=== PATIENT | male | born 1960 | race Hispanic/Latino ===

== ENCOUNTER 2016-08-02 19:49 | Emergency (ER) | payer OTHER ==
[2016-08-02 20:07] VITALS: BP 127/80
--- NOTE | 2016-08-02 21:37 | ED GI/GU/ABDOMINAL COMPLAINT ---
History of Present Illness General Chief Complaint: Male Genitourinary Problems Stated Complaint: "I CANT PEE" Source: patient Exam Limitations: no limitations Vital Signs & Intake/Output Vital Signs & Intake/Output Vital Signs Date Time Temp Pulse Resp B/P Pulse O2 O2 Flow FiO2 Ox Delivery Rate 08/02 2201 100 Room Air 08/02 2006 98.2 90 16 127/80 98 Room Air Room Air Allergies Coded Allergies: NO KNOWN ALLERGIES (02/20/14) Triage Note: PT TO TRIAge WITH THE INABILITY TO URINATE FOR 2 HOURS. PT STATES HE HAS HAD PAIN WITH URINATION FOR 2 DAYS BUT WAS STARTED ON AMOXICILLIN AND TAMSULOSIN TODAY. DENIES FEVERS. DENIES BLOOD IN URINE Triage Nurses Notes Reviewed? yes Onset: Abrupt Duration: hour(s): (2), constant Timing: recent history Prior Abdominal Problems: none HPI: 55-year-old male with a history of enlarged prostate comes into emergency room with inability to urinate for the past 2 hours and lower abdominal pressure. Denies any fever chills vomiting. Denies any prior history of inability to urinate. Denies any other associated symptoms. (THOMPSON RIOS) Past History Travel History Traveled to [place] past 21 day No Medical History Any Pertinent Medical History? see below for history Neurological: NONE EENT: NONE Cardiovascular: NONE Respiratory: NONE Gastrointestinal: NONE Hepatic: NONE Renal: NONE Musculoskeletal: NONE Psychiatric: NONE Endocrine: NONE Blood Disorders: NONE Cancer(s): NONE BURR FILER/Reproductive: NONE Surgical History Surgical History: non-contributory Psychosocial History What is your primary language Bermudian Tobacco Use: Never used ETOH Use: denies use Illicit Drug Use: denies illicit drug use Family History Hx Contributory? No (THOMPSON RIOS) Review of Systems Review of Systems Constitutional: Reports: no symptoms. EENTM: Reports: no symptoms. Respiratory: Reports: no symptoms. Cardiovascular: Reports: no symptoms. GI: Reports: no symptoms. Genitourinary: Reports: see HPI. Musculoskeletal: Reports: no symptoms. Skin: Reports: no symptoms. Neurological/Psychological: Reports: no symptoms. Hematologic/Endocrine: Reports: no symptoms. Immunologic/Allergic: Reports: no symptoms. All Other Systems: Reviewed and Negative (THOMPSON RIOS) Physical Exam Physical Exam General Appearance: well developed/nourished, no apparent distress, alert Head: atraumatic, normal appearance Eyes: Bilateral: normal appearance, EOMI. Ears, Nose, Throat, Mouth: hearing grossly normal, moist mucous membrane Neck: normal inspection Respiratory: normal breath sounds, no respiratory distress Cardiovascular: regular rate/rhythm Gastrointestinal: soft, tenderness (SUPRAPUBIC) Male Genitals: normal genitalia Back: normal inspection, normal range of motion Extremities: normal range of motion Neurologic/Psych: awake, alert, oriented x 3, normal gait, normal mood/affect Skin: intact, normal color Core Measures ACS in differential dx? No Severe Sepsis Present: No Septic Shock Present: No (THOMPSON RIOS) Progress Differential Diagnosis: appendicitis, biliary colic, orchitis, prostatitis, pyelonephritis, testicular torsion, ureterolithiasis, urinary retention, urethritis, UTI/pyelo, bph Plan of Care: Orders Procedure Date/time Status Flores, Insertion/Removal/Asses 08/02 2036 Active CULTURE,URINE 08/02 2036 Active URINALYSIS 08/02 2036 Complete Laboratory Tests 08/02/16 2100: Urine Color YEL, Urine Clarity CLEAR, Urine pH 6.0, Ur Specific [place] 1.010, Urine Protein NEG, Urine Ketones NEG, Urine Nitrite NEG, Urine Bilirubin NEG, Urine Urobilinogen 4.0 H, Ur Leukocyte Esterase TRACE H, Ur Microscopic SEDIMENT EXAMINED, Urine RBC 1-3, Urine WBC 1-3 H, Urine Hemoglobin SMALL H, Urine Glucose NEG Microbiology 08/02 2099 URINE ROUT: Urine Culture - RECD Initial ED EKG: none Comments: 08/02/2016 9:58:08 PM Patient's symptoms completely resolved after Flores catheter placed. Patient sent home with Flores catheter in place with instructions to follow up with urology. Return if any other concerns worsening symptoms. (THOMPSON RIOS) Departure Departure Disposition: HOME OR SELF CARE Condition: Stable Clinical Impression Primary Impression: Urinary retention Referrals: JULIETTE SIMENTAL,MORRIS PELLETIER APRN (PCP/Family) Additional Instructions: Keep catheter in place until he follow-up with urologist. Call tomorrow for follow-up appointment. Return if any other concerns worsening symptoms. Please go over all results of today's visit with your primary care doctor. Contact your primary care doctor to let them know you were here in the emergency room. There may be nonspecific findings which may not be related to your visit today here in the emergency room but may require further evaluation and chronic monitoring by your primary care doctor. If you had a laceration today the chance of foreign body always remains. You should follow-up with your primary care doctor for recheck in 3-5 days for a wound check. If you had an x-ray done there is a chance that a fracture could have been missed on initial read and you should follow-up with your primary care doctor for repeat x-rays if symptoms persist. If your blood pressure was elevated here in the emergency room please have rechecked by her primary care doctor within the next 48 hours by your primary care doctor. If you were prescribed a narcotic here in the emergency room or any type of controlled substances you're not allowed to drive while taking this medication or operate any type of heavy machinery. Narcotics can make you feel lightheaded dizziness nausea and can cause constipation. You may need to bean picker a stool softener. Thank you for choosing [facility] emergency room. Please return to the emergency room immediately if you have any other concerns worsening of symptoms. Departure Forms: Customer Survey General Discharge Information (THOMPSON RIOS) PA/TRANSMISSION REPAIRER Co-Sign Statement Statement: ED Attending supervision documentation- [] I saw and evaluated the patient. I have also reviewed all the pertinent lab results and diagnostic results. I agree with the findings and the plan of care as documented in the PA's/TRANSMISSION REPAIRER's documentation. [X] I have reviewed the ED Record and agree with the PA's/TRANSMISSION REPAIRER's documentation. [] Additions or exceptions (if any) to the PAs/TRANSMISSION REPAIRER's note and plan are summarized below: [] (TRUE SIMENTAL,RAMY Dumont)
[2016-08-18] MEDS ORDERED: TAMSULOSIN HCL0.4 M1 PO (18:07)
[2016-08-18] MEDS ORDERED: DITROPAN XL10 M1 PO (18:08)
== END 2016-08-02 22:03 ==
LOC: ERH 19:49
DX: R33.9 Retention of urine, unspecified (principal)
CPT/HCPCS: 81001; 87086

== ENCOUNTER 2016-08-03 22:33 | Emergency (ER) | payer OTHER ==
[~2016-08-03] VITALS: Ht 167.6 cm; Wt 73.9 kg
--- NOTE | 2016-08-03 23:26 | ED GI/GU/ABDOMINAL COMPLAINT ---
History of Present Illness General Chief Complaint: Male Genitourinary Problems Stated Complaint: "NOT ABLE TO PEE PEE HERE YESTERDAY FOR THE SAME" Source: patient Exam Limitations: no limitations Vital Signs & Intake/Output Vital Signs & Intake/Output Vital Signs Date Time Temp Pulse Resp B/P Pulse O2 O2 Flow FiO2 Ox Delivery Rate 08/04 0013 98.5 99 16 140/80 99 Room Air 08/03 2242 98.4 118 16 155/85 98 Room Air Room Air ED Intake and Output 08/04 0000 08/03 1200 Intake Total 0 Output Total Balance 0 Intake, Oral 0 Patient 163 lb Weight Allergies Coded Allergies: NO KNOWN ALLERGIES (08/03/16) Triage Note: PT TO TRIAGE WITH INABILITY TO VOID FOR OVER 2 HOURTS. PT HAD SIMILAR SITUATION LAST NIGHT AND HAD SALMERON PLACED. PT SAW UROLOGY TODAY WHO REMOVED SALMERON. PT WAS ABLE TO URINATE A LITTLE S/P BUT NOW ONLY HAS A COUPLE DROPS. Triage Nurses Notes Reviewed? yes Onset: Abrupt Duration: hour(s): Timing: single episode today Quality/Severity: cramping Location: suprapubic Radiation: no radiation Activities at Onset: none Prior Abdominal Problems: similar symptoms Modifying Factors: Improves With: other (better with Salmeron). Associated Symptoms: urinary retention HPI: 55-year-old gentleman presents with urinary retention. He has a history of urinary retention, was seen yesterday in the emergency department. He had a Salmeron placed which was draining well. He saw his urologist earlier today. The Salmeron was removed. He states that afterwards he had difficulty urinating. He last urinated several hours ago. He feels pressure, but is unable to void. He is otherwise well has no fever chills nausea vomiting diarrhea. Past History Travel History Traveled to [place] past 21 day No Medical History Any Pertinent Medical History? 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 No Review of Systems Review of Systems Constitutional: Reports: no symptoms. EENTM: Reports: no symptoms. Respiratory: Reports: no symptoms. Cardiovascular: Reports: no symptoms. GI: Reports: no symptoms. Genitourinary: Reports: no symptoms. Musculoskeletal: Reports: no symptoms. Skin: Reports: no symptoms. Neurological/Psychological: Reports: no symptoms. Hematologic/Endocrine: Reports: no symptoms. Immunologic/Allergic: Reports: no symptoms. All Other Systems: Reviewed and Negative Physical Exam Physical Exam General Appearance: well developed/nourished, mild distress Head: atraumatic, normal appearance Eyes: Bilateral: normal appearance. Ears, Nose, Throat, Mouth: hearing grossly normal, moist mucous membrane Neck: normal inspection, supple, full range of motion Respiratory: normal breath sounds, chest non-tender, no respiratory distress, quiet respiration, lungs clear Cardiovascular: regular rate/rhythm Gastrointestinal: normal bowel sounds, soft, non-tender, no organomegaly Back: normal inspection Extremities: normal range of motion Neurologic/Psych: no motor/sensory deficits, awake, alert, oriented x 3 Core Measures ACS in differential dx? No Severe Sepsis Present: No Septic Shock Present: No Progress Differential Diagnosis: urinary retention Plan of Care: Orders Procedure Date/time Status URINALYSIS 08/03 2325 Complete Salmeron, Insertion/Removal/Asses 08/03 2244 Active Laboratory Tests 08/03/16 2345: Urine Color YEL, Urine Clarity CLEAR, Urine pH 6.0, Ur Specific [place] 1.020, Urine Protein 100 H, Urine Ketones NEG, Urine Nitrite NEG, Urine Bilirubin NEG, Urine Urobilinogen 1.0, Ur Leukocyte Esterase NEG, Ur Microscopic SEDIMENT EXAMINED, Urine RBC 25-50 H, Urine WBC RARE, Ur Epithelial Cells RARE, Urine Mucus RARE, Urine Hemoglobin LARGE H, Urine Glucose NEG Microbiology 08/03 2244 URINE ROUT: Urine Culture - CAN Cancelled: Cancelled via OE: WRONG PT Initial ED EKG: none Departure Departure Disposition: HOME OR SELF CARE Condition: Stable Clinical Impression Primary Impression: Urinary retention Referrals: MORRIS MAC APRN (PCP/Family) Departure Forms: Customer Survey General Discharge Information Comments Salmeron was placed immediately upon arrival to the emergency department. He drained nearly 1000 mL of urine. He felt immediate relief. There is no sign of infection in his urinalysis. He will follow-up with the urologist tomorrow. He will continue his baseline BPH medications.
[2016-08-04 00:13] VITALS: BP 140/80
[2016-08-05] MEDS ORDERED: GEMFIBROZIL600 M1 PO (17:33)
[2016-08-05] MEDS ORDERED: VITAMIN D2000 UNIT PO (17:35)
[2016-08-18] MEDS ORDERED: TAMSULOSIN HCL0.4 M1 PO (18:07)
[2016-08-18] MEDS ORDERED: DITROPAN XL10 M1 PO (18:08)
== END 2016-08-04 00:14 ==
LOC: ERH 22:33
DX: R33.9 Retention of urine, unspecified (principal)
CPT/HCPCS: 81001; 87086

== ENCOUNTER 2016-08-05 16:00 | Emergency (ER) | payer OTHER ==
[~2016-08-05] VITALS: Ht 167.6 cm; Wt 73.9 kg
[2016-08-05] MEDS ORDERED: GEMFIBROZIL600 M1 PO (17:33)
[2016-08-05] MEDS ORDERED: VITAMIN D2000 UNIT PO (17:35)
--- NOTE | 2016-08-05 17:35 | ED GI/GU/ABDOMINAL COMPLAINT ---
History of Present Illness General Chief Complaint: Male Genitourinary Problems Stated Complaint: PAIN UPON URINATION Source: patient, family, old records Exam Limitations: language barrier Vital Signs & Intake/Output Vital Signs & Intake/Output Vital Signs Date Time Temp Pulse Resp B/P Pulse O2 O2 Flow FiO2 Ox Delivery Rate 08/05 1837 98.6 108 18 130/81 99 Room Air 08/05 1605 98.1 99 18 135/84 99 Room Air ED Intake and Output 08/06 0000 08/05 1200 Intake Total Output Total 600 Balance -600 Output, Urine 600 Patient 163 lb Weight Allergies Coded Allergies: NO KNOWN ALLERGIES (08/03/16) Reconcile Medications Cholecalciferol (Vitamin D3) (Vitamin D) 2,000 UNIT CAPSULE 1 CAP PO DAILY SUPPLEMENT (Reported) Gemfibrozil 600 MG TABLET 1 TAB PO DAILY CHOLESTEROL (Reported) Triage Note: 55 Y/O MALE C/O URINARY RETENTION SINCE MONDAY; STATES HE HAS A SALMERON IN PLACE "WITH A LITTLE URINE". STATES "MY STOMACH IS FULL". APPEARS UNCOMFORTABLE IN TRIAGE, Triage Nurses Notes Reviewed? yes HPI: Patient is a 55-year-old male presents complaining of suprapubic pain and his Salmeron catheter not draining properly. Patient had a Salmeron catheter placed on August 02, followed up with Dr. Menezes on August 03, had the Salmeron catheter removed, was not able to urinate after that and had the Salmeron catheter again placed. Patient reports that his catheter was drained early this afternoon, has had minimal urine output since then and developed suprapubic pain. Pain was severe home. The charge nurse attempted to flush the patient's Salmeron catheter without success and a new Salmeron catheter was attempted to be placed without success. Patient reports he was able to urinate a very small amount after that which had hematuria and he feels mildly improved. Continues with moderate suprapubic pain. Patient also reports urgency when he has a bowel movement. Patient has an appointment with his urologist on August 16. Patient has been taking a medication from his urologist, is unsure of the name of the medication as it was samples. Denies fevers, chills, nausea, vomiting, diarrhea. (RAJINDER RICHARDS,ANNI) Past History Travel History Traveled to [place] past 21 day No Medical History Any Pertinent Medical History? 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 No (ANNI ORLANDO) Review of Systems Review of Systems Constitutional: Denies: chills, fever. EENTM: Reports: no symptoms. Respiratory: Reports: no symptoms. Cardiovascular: Denies: chest pain. GI: Reports: abdominal pain. Denies: diarrhea, nausea, vomiting. Genitourinary: Reports: see HPI. Musculoskeletal: Denies: back pain. Skin: Reports: no symptoms. Neurological/Psychological: Reports: no symptoms. Hematologic/Endocrine: Reports: no symptoms. Immunologic/Allergic: Reports: no symptoms. (ANNI ORLANDO) Physical Exam Physical Exam General Appearance: well developed/nourished, alert Head: atraumatic, normal appearance Eyes: Bilateral: normal appearance, PERRL, EOMI. Ears, Nose, Throat, Mouth: hearing grossly normal, moist mucous membrane Neck: normal inspection, supple, full range of motion Respiratory: normal breath sounds, chest non-tender, no respiratory distress, lungs clear Cardiovascular: regular rate/rhythm Gastrointestinal: normal bowel sounds, soft, mild suprapubic tenderness Rectal: normal inspection, normal rectal tone, enlarged prostate, does not feel "boggy". Back: normal inspection, normal range of motion Extremities: normal range of motion Neurologic/Psych: no motor/sensory deficits, awake, alert, oriented x 3, normal gait, normal mood/affect Skin: intact, normal color, warm/dry Core Measures ACS in differential dx? No Severe Sepsis Present: No Septic Shock Present: No (ANNI ORLANDO) Progress Differential Diagnosis: prostatitis, urinary retention, UTI/pyelo, rectal abscess Plan of Care: Orders Procedure Date/time Status Salmeron, Insertion/Removal/Asses 08/05 175 Active CULTURE,URINE 08/05 175 Active URINALYSIS 08/05 175 Complete COMPREHENSIVE METABOLIC PANEL 08/05 175 Complete CBC WITHOUT DIFFERENTIAL 08/05 1749 Complete Laboratory Tests 08/05/16 1823: Urinalysis LIGHT H, Urine Color BLUE H, Urine Clarity CLEAR, Urine pH 6.0, Ur Specific [place] 1.015, Urine Protein 30 H, Urine Ketones NEG, Urine Nitrite NEG, Urine Bilirubin NEG, Urine Urobilinogen 0.2, Ur Leukocyte Esterase SMALL H , Ur Microscopic SEDIMENT EXAMINED, Urine RBC >75 H, Urine WBC 3-5 H, Ur Epithelial Cells TRANS H, Urine Hemoglobin LARGE H, Urine Glucose NEG 08/05/16 1800: Anion Gap 11, Estimated GFR > 60, BUN/Creatinine Ratio 18.0, Glucose 116 H, Calcium 9.4, Total Bilirubin 0.4, AST 33, ALT 69, Alkaline Phosphatase 99, Total Protein 7.0, Albumin 3.8, Globulin 3.2, Albumin/Globulin Ratio 1.2, CBC w Diff NO MAN DIFF REQ, RBC 5.21, MCV 84.1, MCH 28.2, RDW 13.3, MPV 8.4, Gran % 61.9, Lymphocytes % 20.7, Monocytes % 15.4 H, Eosinophils % 1.8, Basophils % 0.2, Absolute Granulocytes 3.8, Absolute Lymphocytes 1.3, Absolute Monocytes 0.9 H, Absolute Eosinophils 0.1, Absolute Basophils 0, PUBS MCHC 33.5 Microbiology 08/05 1823 URINE ROUT: Urine Culture - RES Discussed with and seen by Dr. Garcia. 08/05/2016 7:38:24 PM: Patient reports significant improvement in his symptoms after Salmeron placement. Patient reports that Salmeron is draining without difficulty and he is currently symptom-free. Discussed results of labs with the patient and his family member. Patient appears stable for discharge, instructed them to contact his urologist on Monday. (ANNI ORLANDO) Initial ED EKG: none (ANNI ORLANDO) Departure Departure Time of Disposition: 1935 Disposition: HOME OR SELF CARE Condition: Stable Clinical Impression Primary Impression: Salmeron catheter problem Qualifiers: Encounter type: initial encounter Qualified Code: T83.9XXA - Unspecified complication of genitourinary prosthetic device, implant and graft, initial encounter Referrals: JULIETTE SIMENTAL,MORRIS PELLETIER APRN (PCP/Family) Additional Instructions: Follow up with Dr. Menezes. Call Monday to try to get an earlier appointment than your appointment on 08/16/16. Drink plenty of fluids. Return to the ER if fevers, increasing pain, catheter is not draining or worsening of symptoms. Departure Forms: Customer Survey General Discharge Information (RAJINDER RICHARDS,ANNI) PA/TELECASTING ENGINEER Co-Sign Statement Statement: ED Attending supervision documentation- [] I saw and evaluated the patient. I have also reviewed all the pertinent lab results and diagnostic results. I agree with the findings and the plan of care as documented in the PA's/TELECASTING ENGINEER's documentation. [x] I have reviewed the ED Record and agree with the PA's/TELECASTING ENGINEER's documentation. [] Additions or exceptions (if any) to the PAs/TELECASTING ENGINEER's note and plan are summarized below: [] (TAWANA GARCIA DO)
[2016-08-05 18:23] LABS: ABSOLUTE BASOPHIL COUNT 0 /CUMM (0.0-0.2); ABSOLUTE EOSINOPHIL COUNT 0.1 /CUMM (0.0-0.7); ABSOLUTE GRANULOCYTE CT 3.8 /CUMM (1.4-6.5); ABSOLUTE LYMPH COUNT 1.3 /CUMM (1.2-3.4); ABSOLUTE MONOCYTE COUNT 0.9 /CUMM (0.10-0.60); BASOPHIL % 0.2 % (0.0-2.0); EOSINOPHIL % 1.8 % (0-5); GRANULOCYTE % 61.9 % (42.2-75.2); HEMATOCRIT 43.8 % (42-52); MEAN CORPUSCULAR HGB 28.2 PG (27.0-31.0); MEAN CORPUSCULAR HGB CONC 33.5 G/DL (33.0-37.0); MEAN CORPUSCULAR VOLUME 84.1 FL (80.0-94.0); MEAN PLATELET VOLUME 8.4 FL (7.4-10.4); PLATELET COUNT 249 /CUMM (130-400); RBC DISTRIBUTION WIDTH 13.3 % (11.5-14.5); RED BLOOD CELL CT 5.21 /CUMM (4.70-6.10); WHITE BLOOD CELL COUNT 6.1 /CUMM (4.8-10.8)
[2016-08-05 18:37] VITALS: BP 130/81
[2016-08-18] MEDS ORDERED: TAMSULOSIN HCL0.4 M1 PO (18:07)
[2016-08-18] MEDS ORDERED: DITROPAN XL10 M1 PO (18:08)
== END 2016-08-05 19:57 ==
LOC: ERH 16:00
PROVIDERS: Physician Assistant
DX: T83.9XXA Unspecified complication of genitourinary prosthetic device, implant and graft, initial encounter (principal)
CPT/HCPCS: 81001; 87086

== ENCOUNTER → 2016-08-19 | Day surgery (SDC) | payer OTHER ==
[~2016-08-19] MED LIST: CEFUROXIME500 MG PO; DITROPAN XL10 M1 PO; GEMFIBROZIL600 M1 PO; TAMSULOSIN HCL0.4 M1 PO; VITAMIN D2000 UNIT PO
--- NOTE | 2016-08-20 14:04 | Operative Report ---
Operative/Inv Procedure Report Surgery Date: 08/19/16 Name of Procedure: Bipolar TURP Pre-Operative Diagnosis: trilobar benign prostatic hypertrophy Post-Operative Diagnosis: same Estimated Blood Loss: 50ml to 100ml Surgeon/Japanese Interpreter: SARAI SEGOVIA MD Anesthesia: laryngeal mask airway Drains: 20fr smith [address] Specimens: prostate chips Complications: none Condition: stable Operative Indication: urinary retention x multiple with failed medical therapy Operative/Procedure Note Note: Milton White was identified in the operating room and consented for a TURP for his BPH issues. He was given the risks, benefits and alternatives of the surgery and all questions were answered. He was taken to the operating room and placed on the operating room table in the supine position. Once time out was performed, IV antibiotics were infused and LMA was performed. He was placed into the dorsal lithotomy position and prepped and draped in the standard sterile fashion. A cystoscopy was performed and the bladder was globally inspected. The left ureteral orifice was able to be identified but not the right side. He had a very large trilobar obstruction with a long prostatic length. The laser fiber was placed and used for a short period before it was too bloody to continue using. The resectoscope was placed with the bipolar loop and the prostate was resected in a systematic fashion starting from the bladder neck/median lobe to the left lateral lobe then the right side. Care was taken to ensure the ureters were not in the field of surgery and the verumontanum was not surpassed while resecting the prostate. Point coagulation was carried out as needed. The [employer] evacuator was used throughout the remove the prostatic chips periodically. Once the gland was sufficiently resected with a nice open channel, the bladder was cleared of the remaining prostatic chips. There was no active bleeders. A 20Fr [address] coude catheter was placed with 20cc of water in the balloon. The continuous bladder irrigation was started and the smith bag attached. The patient tolerated the procedure well. Findings: trilobar prostatic lobes with long prostatic length.
== END ==
LOC: STS 01:21
DX: N40.1 Benign prostatic hyperplasia with lower urinary tract symptoms (principal); R33.9 Retention of urine, unspecified; N13.8 Other obstructive and reflux uropathy; E78.00 Pure hypercholesterolemia, unspecified; F17.200 Nicotine dependence, unspecified, uncomplicated
CPT/HCPCS: 88305; J0131; J0690; J1885; J2250

== ENCOUNTER 2016-09-05 22:50 | Emergency (ER) | payer OTHER ==
[~2016-09-05] VITALS: Ht 167.6 cm; Wt 76.2 kg
[~2016-09-05 22:50] MED LIST changes: -CEFUROXIME500 MG PO
--- NOTE | 2016-09-05 23:24 | ED GI/GU/ABDOMINAL COMPLAINT ---
History of Present Illness General Chief Complaint: Male Genitourinary Problems Stated Complaint: "UNABLE TO URINATE, NEED CATH NOW" PER PT Source: patient, old records Exam Limitations: no limitations Vital Signs & Intake/Output Vital Signs & Intake/Output Vital Signs Date Time Temp Pulse Resp B/P Pulse O2 O2 Flow FiO2 Ox Delivery Rate 09/06 0124 98.6 88 18 142/82 98 Room Air 09/05 2300 98.7 108 20 168/97 98 Room Air ED Intake and Output 09/06 0000 09/05 1200 Intake Total Output Total Balance Patient 168 lb Weight Allergies Coded Allergies: NO KNOWN ALLERGIES (08/03/16) Reconcile Medications Cholecalciferol (Vitamin D3) (Vitamin D) 2,000 UNIT CAPSULE 1 CAP PO DAILY SUPPLEMENT (Reported) Gemfibrozil 600 MG TABLET 1 TAB PO DAILY CHOLESTEROL (Reported) Oxybutynin Chloride (Ditropan XL) 10 MG TAB.ER.24 1 TAB PO DAILY BLADDER ( Reported) Tamsulosin HCl 0.4 MG CAP.ER.24H 1 CAP PO DAILY (Reported) Triage Note: RECEIVED 55 YO MALE C/O UNABLE TO VOID. LAST VOIDED BLOODY URINE ONE HOUR AGO. PT HAD PROSTATE SURGURY 20 DAYS AGO. TURP?. UROLOGIST DR MORAN Triage Nurses Notes Reviewed? yes HPI: Patient had a TURP [address] Surekha Menezes. Today he started having blood in his urine and has been unable to void for the past 3 hours. Patient is now having pressure sensation in his suprapubic area feeling like he has to urinate but is unable to. The pain is worsening and is currently an 8 out of 10. There is no radiation. There are no aggravating or mitigating factors. There is no nausea or vomiting. There are no fevers or chills. Past History Travel History Traveled to [place] past 21 day No Medical History Any Pertinent Medical History? 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 No Review of Systems Review of Systems Constitutional: Reports: no symptoms. EENTM: Reports: no symptoms. Respiratory: Reports: no symptoms. Cardiovascular: Reports: no symptoms. GI: Reports: no symptoms. Genitourinary: Reports: see HPI, hematuria, hesitation. Musculoskeletal: Reports: no symptoms. Skin: Reports: no symptoms. Neurological/Psychological: Reports: no symptoms. Hematologic/Endocrine: Reports: no symptoms. Immunologic/Allergic: Reports: no symptoms. All Other Systems: Reviewed and Negative Physical Exam Physical Exam General Appearance: well developed/nourished, alert, awake, anxious Head: atraumatic Eyes: Bilateral: PERRL, EOMI. Ears, Nose, Throat, Mouth: hearing grossly normal, moist mucous membrane Neck: normal inspection Respiratory: normal breath sounds, chest non-tender, no respiratory distress, lungs clear Cardiovascular: regular rate/rhythm, normal peripheral pulses Gastrointestinal: normal bowel sounds, soft, non-tender, no organomegaly Back: normal inspection Extremities: normal range of motion Neurologic/Psych: no motor/sensory deficits, awake, alert, oriented x 3, normal gait, normal mood/affect Skin: intact, normal color, warm/dry Core Measures ACS in differential dx? No Severe Sepsis Present: No Septic Shock Present: No Progress Differential Diagnosis: urinary retention, UTI/pyelo Plan of Care: Orders Procedure Date/time Status Flores, Insertion/Removal/Asses 09/05 2322 Active CULTURE,URINE 09/05 2322 Active URINALYSIS 09/05 2322 Complete Laboratory Tests 09/06/16 0010: Urine Color BLDY H, Urine Clarity TURBD H, Urine pH 6.5, Ur Specific [place] 1.025, Urine Protein >=300 H, Urine Ketones NEG, Urine Nitrite NEG, Urine Bilirubin NEG, Urine Urobilinogen 0.2, Ur Leukocyte Esterase NEG, Ur Microscopic SEDIMENT EXAMINED, Urine RBC PACKD H, Urine Hemoglobin LARGE H, Urine Glucose NEG Microbiology 09/06 001 URINE ROUT: Urine Culture - RECD Initial ED EKG: none Departure Departure Disposition: HOME OR SELF CARE Condition: Stable Clinical Impression Primary Impression: Urinary retention Referrals: JULIETTE SIMENTAL,MORRIS PELLETIER APRN (PCP/Family) Additional Instructions: KEEP CATHETER IN FOLLOW UP WITH DR. MENEZES RETURN FOR ANY CONCERNS Departure Forms: Customer Survey General Discharge Information
[2016-09-06 01:24] VITALS: BP 142/82
== END 2016-09-06 01:27 ==
LOC: ERH 22:50
DX: R33.9 Retention of urine, unspecified (principal); R31.9 Hematuria, unspecified
CPT/HCPCS: 81001; 87086

== ENCOUNTER 2016-09-09 23:49 | Emergency (ER) | payer OTHER ==
[~2016-09-09] VITALS: Ht 162.6 cm; Wt 76.2 kg
--- NOTE | 2016-09-09 23:56 | ED GI/GU/ABDOMINAL COMPLAINT ---
History of Present Illness General Chief Complaint: Male Genitourinary Problems Stated Complaint: DIFFICULT URINATION Source: patient Exam Limitations: no limitations Vital Signs & Intake/Output Vital Signs & Intake/Output Vital Signs Date Time Temp Pulse Resp B/P Pulse O2 O2 Flow FiO2 Ox Delivery Rate 09/10 0003 98.1 89 16 115/84 98 Room Air ED Intake and Output 09/10 0000 09/09 1200 Intake Total Output Total Balance Patient 168 lb Weight Allergies Coded Allergies: NO KNOWN ALLERGIES (08/03/16) Reconcile Medications Cefuroxime Axetil (Cefuroxime) 500 MG TABLET 1 TAB PO BID uti/hematuria Cholecalciferol (Vitamin D3) (Vitamin D) 2,000 UNIT CAPSULE 1 CAP PO DAILY SUPPLEMENT (Reported) Gemfibrozil 600 MG TABLET 1 TAB PO DAILY CHOLESTEROL (Reported) Oxybutynin Chloride (Ditropan XL) 10 MG TAB.ER.24 1 TAB PO DAILY BLADDER ( Reported) Tamsulosin HCl 0.4 MG CAP.ER.24H 1 CAP PO DAILY (Reported) Triage Nurses Notes Reviewed? yes Onset: Gradual Duration: hour(s): Timing: recent history Quality/Severity: cramping Location: suprapubic Radiation: no radiation Activities at Onset: pt with indwelling smith... was flushed by urologist earlier today Prior Abdominal Problems: pt is s/p TURP in mid-august Modifying Factors: Worsens With: other (blood clots). Associated Symptoms: hematuria HPI: 55-year-old gentleman presents with hematuria and blood clots from his indwelling Smith. He states that in mid August he had a TURP. He has had a Smith catheter since then. He notes that earlier today his urologist flushed out his bladder. Several hours ago he developed hematuria with clots. He notes that he has had difficulty emptying his bladder due to the clots. He has no fever chills nausea vomiting diarrhea. He is otherwise well and has no other concerns. Past History Travel History Traveled to [place] past 21 day No Medical History Any Pertinent Medical History? 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 No Review of Systems Review of Systems Constitutional: Reports: no symptoms. EENTM: Reports: no symptoms. Respiratory: Reports: no symptoms. Cardiovascular: Reports: no symptoms. GI: Reports: no symptoms. Genitourinary: Reports: no symptoms. Musculoskeletal: Reports: no symptoms. Skin: Reports: no symptoms. Neurological/Psychological: Reports: no symptoms. Hematologic/Endocrine: Reports: no symptoms. Immunologic/Allergic: Reports: no symptoms. All Other Systems: Reviewed and Negative Physical Exam Physical Exam General Appearance: well developed/nourished, mild distress Head: atraumatic, normal appearance Eyes: Bilateral: normal appearance. Ears, Nose, Throat, Mouth: hearing grossly normal Neck: normal inspection, supple, full range of motion Respiratory: normal breath sounds, chest non-tender, no respiratory distress, quiet respiration, lungs clear Cardiovascular: regular rate/rhythm Gastrointestinal: normal bowel sounds, soft, non-tender Male Genitals: smith in place... dark blood with clots in smith bag. Back: normal inspection Extremities: normal range of motion Neurologic/Psych: no motor/sensory deficits, awake, alert, oriented x 3 Skin: intact, normal color, warm/dry Core Measures ACS in differential dx? No Severe Sepsis Present: No Septic Shock Present: No Progress Differential Diagnosis: hematuria, post-op bleeding Plan of Care: smith flushed... home with antibiotics. Initial ED EKG: none Departure Departure Disposition: HOME OR SELF CARE Condition: Stable Clinical Impression Primary Impression: Hematuria Secondary Impressions: Problem with Smith catheter Referrals: MORRIS MAC APRN (PCP/Family) Departure Forms: Customer Survey General Discharge Information Prescriptions: Current Visit Scripts Cefuroxime Axetil (Cefuroxime) 1 TAB PO BID #14 TAB Comments 09/10/16, 1:30am... pt's smith flushed by RN team... urine draining clear, cranberry urine... no clots... bedside u/s reveals a collapsed bladder. Pt safe for discharge... Pt to follow up with his urologist on monday. Gave rx for abx for clinical suspicion for underlying infection.
[2016-09-10] MEDS ORDERED: CEFUROXIME500 MG PO (00:28)
[2016-09-10 01:37] VITALS: BP 118/65
== END 2016-09-10 01:43 ==
LOC: ERH 23:49
DX: T83.098A Other mechanical complication of other urinary catheter, initial encounter (principal); R31.9 Hematuria, unspecified

== ENCOUNTER 2016-09-13 15:33 | Emergency (ER) | payer OTHER ==
[~2016-09-13] VITALS: Ht 157.5 cm; Wt 70.8 kg
[~2016-09-13 15:33] MED LIST changes: +CEFUROXIME500 MG PO
--- NOTE | 2016-09-13 15:49 | ED GI/GU/ABDOMINAL COMPLAINT ---
History of Present Illness General Chief Complaint: Male Genitourinary Problems Stated Complaint: PT NEEDS HIS PENIS CHECK LITTLE RED Source: patient Exam Limitations: no limitations Vital Signs & Intake/Output Vital Signs & Intake/Output Vital Signs Date Time Temp Pulse Resp B/P Pulse O2 O2 Flow FiO2 Ox Delivery Rate 09/13 1712 98.2 87 18 129/82 100 Room Air 09/13 1539 98.1 90 18 136/84 99 Room Air Allergies Coded Allergies: NO KNOWN ALLERGIES (08/03/16) Reconcile Medications Cefuroxime Axetil (Cefuroxime) 500 MG TABLET 1 TAB PO BID uti/hematuria Cholecalciferol (Vitamin D3) (Vitamin D) 2,000 UNIT CAPSULE 1 CAP PO DAILY SUPPLEMENT (Reported) Gemfibrozil 600 MG TABLET 1 TAB PO DAILY CHOLESTEROL (Reported) Oxybutynin Chloride (Ditropan XL) 10 MG TAB.ER.24 1 TAB PO DAILY BLADDER ( Reported) Tamsulosin HCl 0.4 MG CAP.ER.24H 1 CAP PO DAILY (Reported) Triage Note: PT STATES THAT HE HAS A SALMERON AND THAT IT HAS NOT DRAINED FOR THE PAST FEW HOURS, COMPLAINS OF PRESSURE AND URINE COMING AROUND SALMERON WITH BLOOD IN IT Triage Nurses Notes Reviewed? yes Onset: Abrupt Duration: hour(s): (3), constant, continues in ED Timing: recent history No Modifying Factors: none HPI: 55-year-old male comes into emergency room for further evaluation of Salmeron catheter not draining. Patient reports that last month he had his prostate removed by Dr. Menezes and has had a catheter in place since then. Denies any fever chills vomiting. Patient reports it's been bloody and has had some clots. Patient reports that he has not drained in the past 3 hours. Denies any other associated symptoms at this time. (THOMPSON RIOS) Past History Travel History Traveled to [place] past 21 day No Medical History Any Pertinent Medical History? 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 No (THOMPSON RIOS) Review of Systems Review of Systems Constitutional: Reports: no symptoms. EENTM: Reports: no symptoms. Respiratory: Reports: no symptoms. Cardiovascular: Reports: no symptoms. GI: Reports: no symptoms. Genitourinary: Reports: see HPI. Musculoskeletal: Reports: no symptoms. Skin: Reports: no symptoms. Neurological/Psychological: Reports: no symptoms. Hematologic/Endocrine: Reports: no symptoms. Immunologic/Allergic: Reports: no symptoms. All Other Systems: Reviewed and Negative (THOMPSON RIOS) Physical Exam Physical Exam General Appearance: well developed/nourished, alert, awake Head: atraumatic, normal appearance Eyes: Bilateral: normal appearance, EOMI. Ears, Nose, Throat, Mouth: hearing grossly normal, moist mucous membrane Neck: normal inspection Respiratory: normal breath sounds, no respiratory distress Gastrointestinal: soft, tenderness Male Genitals: dark red blood in catheter bag Back: normal inspection Extremities: normal range of motion Neurologic/Psych: awake, alert, oriented x 3, normal gait, normal mood/affect Skin: intact, normal color Core Measures ACS in differential dx? No Severe Sepsis Present: No Septic Shock Present: No (THOMPSON RIOS) Progress Differential Diagnosis: appendicitis, colon cancer, cholecystitis, diverticulitis, testicular torsion, ureterolithiasis, urinary retention, urethritis, UTI/pyelo Plan of Care: 09/13/2016 5:00:45 PM Salmeron catheter was flushed and drain. Blood clots removed. Flushed multiple times after in draining clear pain canal. No more clots appreciated. 700 mL drained. Patient feels significantly better. Case discussed with Dr. Menezes and patient can follow-up in the office tomorrow with them. Patient was educated on Flushing catheter at home. Initial ED EKG: none (THOMPSON RIOS) Departure Departure Disposition: HOME OR SELF CARE Condition: Stable Clinical Impression Primary Impression: Urinary retention Secondary Impressions: Obstructed Salmeron catheter Referrals: MORRIS MAC APRN (PCP/Family) Additional Instructions: Call your urologist tomorrow for follow-up appointment. Please return to emergency room if any concerns worsening symptoms. Drink plenty of water. Please go over all results of today's visit with your primary care doctor. Contact your primary care doctor to let them know you were here in the emergency room. There may be nonspecific findings which may not be related to your visit today here in the emergency room but may require further evaluation and chronic monitoring by your primary care doctor. If you had a laceration today the chance of foreign body always remains. You should follow-up with your primary care doctor for recheck in 3-5 days for a wound check. If you had an x-ray done there is a chance that a fracture could have been missed on initial read and you should follow-up with your primary care doctor for repeat x-rays if symptoms persist. If your blood pressure was elevated here in the emergency room please have rechecked by her primary care doctor within the next 48 hours by your primary care doctor. If you were prescribed a narcotic here in the emergency room or any type of controlled substances you're not allowed to drive while taking this medication or operate any type of heavy machinery. Narcotics can make you feel lightheaded dizziness nausea and can cause constipation. You may need to hop picker a stool softener. Thank you for choosing [facility] emergency room. Please return to the emergency room immediately if you have any other concerns worsening of symptoms. Departure Forms: Customer Survey General Discharge Information (THOMPSON RIOS) PA/INSTRUCTIONAL DESIGNER Co-Sign Statement Statement: ED Attending supervision documentation- [] I saw and evaluated the patient. I have also reviewed all the pertinent lab results and diagnostic results. I agree with the findings and the plan of care as documented in the PA's/INSTRUCTIONAL DESIGNER's documentation. x I have reviewed the ED Record and agree with the PA's/INSTRUCTIONAL DESIGNER's documentation. [] Additions or exceptions (if any) to the PAs/INSTRUCTIONAL DESIGNER's note and plan are summarized below: [] (TAURUS SIMENTAL,MARLA)
[2016-09-13 17:12] VITALS: BP 129/82
== END 2016-09-13 17:13 ==
LOC: ERH 15:33
DX: T83.091A Other mechanical complication of indwelling urethral catheter, initial encounter (principal); R33.9 Retention of urine, unspecified